=== PATIENT | female | born 1975 | race Caucasian/White ===

== ENCOUNTER 2018-08-08 13:24 | Outpatient (CLI) | payer MEDICAID, SELFPAY ==
--- NOTE | 2018-08-08 12:06 | DI.RAD_ITS ---
SYMPTOM/DIAGNOSIS: RT HIP PAIN, M25.551 RIGHT HIP: 08/08 Three views were obtained. No bony or soft tissue abnormality is seen. No evidence of fracture.
== END 2018-08-08 13:44 ==
PROVIDERS: PCP Nurse Practitioner Family; Visit Provider Nurse Practitioner Family
DX: M25.551 Pain in right hip (principal)
CPT/HCPCS: 73502

== ENCOUNTER 2018-09-05 11:40 | Emergency (ER) | payer MEDICAID, SELFPAY ==
[2018-09-05 12:15] VITALS: BP 132/88; PULSE 78; RESP 18; TEMP 36.7; O2SAT 99
--- NOTE | 2018-09-05 12:50 | W.ED.GENAD ---
Discharge Plan Disposition Patient Disposition: HOME Condition: Fair Discharge Details Chief Complaint: Orthopedic Clinical Impression: Muscle spasm Primary Care Provider: Phyllis Morataya ED Provider: Martha Zapata Home Meds and New Rx's Prescriptions: New cyclobenzaprine 10 mg tablet 10 mg PO TID PRN (Reason: muscle spasm) Qty: 10 RF: 0 ibuprofen 600 mg tablet 600 mg PO QID PRN (Reason: pain) Qty: 20 RF: 0 Continue meclizine [Antivert] 25 MG tablet 25 mg PO Q8H PRN PRN (Reason: Dizziness) Qty: 20 RF: 0 albuterol sulfate [ProAir HFA] 8.5 GM HFA aerosol inhaler 2 puff Inhalation .Q4-6H PRN RF: 0 naproxen 500 MG tablet 1 tab PO BID RF: 0 prochlorperazine maleate 10 MG tablet 10 mg PO Q4H PRN PRN (Reason: Headache) Qty: 10 RF: 0 bupropion HCl [Wellbutrin] 100 MG tablet 150 mg PO DAILY RF: 0 Discharge Instructions Instructions: Muscle Spasm (ED) Additional Instructions: Encourage hydration. Gentle stretching as discussed. Heat or ice to affected area. You may try topical patches such as Salonpas or Lidoderm patches to help with discomfort. Flexion was prescribed to help with muscle spasm. Tylenol and/or ibuprofen as needed for discomfort. May take 1000 mg of Tylenol every 6 hours, max of 4000 mg daily. You may also use 600 mg of ibuprofen every 6 hours. Next dosing of ibuprofen and due at 8 PM. Please follow-up with primary care at the end of the week for reevaluation. If you develop increased pain, fever/chills, shortness of breath, difficulty breathing or other new/worsening symptoms please seek care urgently once again. Referrals: Phyllis Morataya [Primary Care Provider] - Discharge Data Discharge Date/Time-TO BE ENTERED AT DEPARTURE: 09/05/18 14:20 Medical Decision Making Patient is a 43-year-old [id number] female presenting today with chief complaint of left anterior shoulder pain. She reports approximately 3 days ago she awoke with discomfort in left shoulder. States she did initially note some twinges of discomfort in this area the night before while at work. 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 She denies any altered sensation. Denies any discomfort with movement of the hand, wrist or elbow. Denies any known trauma. Indicates the area of the pectoralis is area of maximal discomfort. On exam, patient has a notable area of swelling approximately 10 cm in circumference. No ecchymosis, erythema or rashes. Patient is full range of motion with external and internal rotation. Forward elevation is quite limited to approximately 90 degrees secondary to pain. Again, the area of swelling over the left pectoral muscle is area of discomfort with forward elevation. This patient did not fall or have any trauma, I do not feel that imaging is necessary. Lungs are clear in all laguna. No cough, fever/chills, no difficulty breathing. Patient will be given Flexeril, Toradol, Tylenol and Lidoderm patch and will reassess the patient's discomfort. Patient is status post hysterectomy Patient received reiki while in the department which she reports helped some with her discomfort and help to calm her After patient received IM Toradol, Flexeril, Tylenol and Lidoderm patch, she reports that she is feeling much improved. Pain is still there but is tolerable. She is able to move her arm with much less discomfort. When I called her back into her room again she is swinging her arm and is holding herself on the left arm which is different than when I had seen her initially. She is able to demonstrate bringing her arm across her body which is what initially caused her maximal discomfort. Feels she tolerated the medication well. Encourage hydration. We discussed new/worsening symptoms when to seek care urgently once again. Advised on topical and oral regimens that may help with discomfort. She will be prescribed Flexeril to help with her palpable muscle spasm. Advise follow-up with primary care at the end of the week. We discussed activities that she should avoid that may exacerbate her discomfort. All of her questions and concerns were addressed she is in agreement this plan HPI General Mode of arrival: ambulatory. Date/Time Provider Initiated Documentation: 09/05/18 12:17. Limitations to Documentation: no limitations. History of Present Illness 43 year old F presents to the emergency department with the chief complaint of left shoulder pain, described as severe, with intensity rated at 10. Quality is described as aching, and is localized to the left and upper extremity. Patient reports no radiation; denies radiation to back, neck and extremity. Patient started experiencing this day(s) (3) and it has been constant. No relieving factors improve symptom(s), No exacerbating factors reported . Patient notes no other symptoms.; denies chest pain, cough, diaphoresis, fever/chills, headaches, malaise, nausea/vomiting, rash, shortness of breath and syncope. Patient did receive the following treatments prior to arrival, none Related Data Home Medications Medication Instructions Recorded Confirmed meclizine [Antivert] 25 mg PO Q8H PRN PRN #20 tab 08/15/13 09/05/18 albuterol sulfate [ProAir HFA] 2 puff INHALATION .Q4-6H PRN 12/20/13 09/05/18 bupropion HCl [Wellbutrin] 150 mg PO DAILY 03/22/17 09/05/18 naproxen 1 tab PO BID 08/01/17 09/05/18 prochlorperazine maleate 10 mg PO Q4H PRN PRN #10 tab 08/01/17 09/05/18 cyclobenzaprine 10 mg PO TID PRN #10 tab 09/05/18 ibuprofen 600 mg PO QID PRN #20 tab 09/05/18 Previous Rx's Medication Instructions Recorded meclizine [Antivert] 25 mg PO Q8H PRN PRN #20 tab 08/15/13 prochlorperazine maleate 10 mg PO Q4H PRN PRN #10 tab 08/01/17 cyclobenzaprine 10 mg PO TID PRN #10 tab 09/05/18 ibuprofen 600 mg PO QID PRN #20 tab 09/05/18 Allergies Allergy/AdvReac Type Severity Reaction Status Date / Time Penicillins Allergy chest Unverified 09/05/18 12:25 tightness, wheezes General Stated Complaint: Orthopedic RUSS: 4 Review of Systems Constitutional Reports as per HPI, Denies chills, Denies fever(s) and Denies headache(s) ENT Denies headache(s) Cardiovascular Denies chest pain, Denies chest pain with activity, Denies diaphoresis, Denies palpitations and Denies dyspnea Respiratory Denies cough, Denies pain on inspiration, Denies pain with cough and Denies dyspnea Gastrointestinal Denies abdominal pain, Denies change in stool character, Denies nausea and Denies vomiting Musculoskeletal Reports as per HPI, Denies numbness and Denies tingling Integumentary/Breasts Denies lesions, Denies rash and Denies skin pain Neurologic Denies headache(s), Denies numbness, Denies tingling and Denies paresthesias Endocrine Denies palpitations [facility] Social History Smoking/Tobacco Use Status: Never Exam Const General: cooperative, healthy appearing, uncomfortable (patient appears uncomfortable, splinting left arm with contralateral side), no acute distress, well developed and well groomed Nutritional Appearance: average body habitus and well nourished Orientation: alert and awake Neck Neck: normal visual inspection, full ROM, no lymphadenopathy, no meningeal signs, nontender and no torticollis Chest Chest: abnormal inspection of the chest (With the left lateral superior anterior chest patient has area of focal swelling. No rash or discoloration. This is the area of discomfort with the patient was associated with her left shoulder) Chest/axillae images: 1. Resp Effort & Inspection: normal respiratory effort, able to speak in complete sentences and no respiratory distress Auscultation: clear to auscultation bilaterally, no rales, no rhonchi and no wheezes Cardio Rate: regular rate Rhythm: regular rhythm Heart Sounds: S1 normal and S2 normal GI Inspection: normal to inspection Palpation: soft, no guarding and nontender Back/Spine/Pelvis Back: no CVA tenderness Cervical Spine: normal cervical lordosis and cervical ROM normal Thoracic/Lumbar Spine: thoracic and lumbar spine normal to inspection Skin General skin exam: no rashes or lesions noted Trauma: no lacerations or abrasions Neuro General: alert and awake Cognition: normal cognition Speech: speech normal Gait: normal gait Motor: muscle tone normal throughout Sensory Exam: no sensory deficits noted Extrem Right upper extremity: normal capillary refill, no joint enlargement and shoulder/upper arm Details: tenderness Location: over the biceps tendon; not of the clavicle, not of the A-C joint, not of the proximal humerus, not of the scapula and not over the subacromial bursa; no swelling, ROM limited, no ecchymosis, no crepitus and no unusual warmth; abnormal to inspection (Patient reports that she has anterior shoulder pain. Point of maximal tenderness seems to be more over the superior lateral chest wall, please see above. This area is swollen and feels tense like muscle spasm.), ROM limited (Patient is full external and internal rotation of the left shoulder. However, forward elevation is limited to 90 degrees. This causes increased pain over the area of chest wall disc), no cyanosis and no edema Psych Appearance: grossly normal and well kempt Mental Status: mental status grossly normal Speech and Movement: speech and movement normal Course Vital Signs Temperature 36.7 C 09/05/18 12:15 Pulse 78 09/05/18 12:15 Respiratory Rate 18 09/05/18 12:15 Blood Pressure 132/88 09/05/18 12:15 Pulse Oximetry 99 09/05/18 12:15 Temperature 36.7 C 09/05/18 12:15 Temperature Source Temporal Artery Scan 09/05/18 12:15 Pulse 78 09/05/18 12:15 Respiratory Rate 18 09/05/18 12:15 Blood Pressure 132/88 09/05/18 12:15 Pulse Oximetry 99 09/05/18 12:15 Oxygen Delivery Method Room Air 09/05/18 12:15 Oxygen Flow Rate 0 09/05/18 12:15 Pain Level 09/05/18 12:15 Comment 09/05/18 12:15
--- NOTE | 2018-09-05 12:53 | ED.GENADUL_ITS ---
Discharge Plan Disposition Patient Disposition: HOME Condition: Fair Discharge Details Chief Complaint: Orthopedic Clinical Impression: Muscle spasm Primary Care Provider: Phyllis Morataya ED Provider: Martha Zapata Home Meds and New Rx's Prescriptions: New cyclobenzaprine 10 mg tablet 10 mg PO TID PRN (Reason: muscle spasm) Qty: 10 RF: 0 ibuprofen 600 mg tablet 600 mg PO QID PRN (Reason: pain) Qty: 20 RF: 0 Continue meclizine [Antivert] 25 MG tablet 25 mg PO Q8H PRN PRN (Reason: Dizziness) Qty: 20 RF: 0 albuterol sulfate [ProAir HFA] 8.5 GM HFA aerosol inhaler 2 puff Inhalation .Q4-6H PRN RF: 0 naproxen 500 MG tablet 1 tab PO BID RF: 0 prochlorperazine maleate 10 MG tablet 10 mg PO Q4H PRN PRN (Reason: Headache) Qty: 10 RF: 0 bupropion HCl [Wellbutrin] 100 MG tablet 150 mg PO DAILY RF: 0 Discharge Instructions Instructions: Muscle Spasm (ED) Additional Instructions: Encourage hydration. Gentle stretching as discussed. Heat or ice to affected area. You may try topical patches such as Salonpas or Lidoderm patches to help with discomfort. Flexion was prescribed to help with muscle spasm. Tylenol and /or ibuprofen as needed for discomfort. May take 1000 mg of Tylenol every 6 hours, max of 4000 mg daily. You may also use 600 mg of ibuprofen every 6 hours. Next dosing of ibuprofen and due at 8 PM. Please follow-up with primary care at the end of the week for reevaluation. If you develop increased pain, fever/chills, shortness of breath, difficulty breathing or other new/ worsening symptoms please seek care urgently once again. Referrals: Phyllis Morataya [Primary Care Provider] - Discharge Data Discharge Date/Time-TO BE ENTERED AT DEPARTURE: 09/05/18 14:20 Medical Decision Making Patient is a 43-year-old [id number] female presenting today with chief complaint of left anterior shoulder pain. She reports approximately 3 days ago she awoke with discomfort in left shoulder. States she did initially note some twinges of discomfort in this area the night before while at work. 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 She denies any altered sensation. Denies any discomfort with movement of the hand, wrist or elbow. Denies any known trauma. Indicates the area of the pectoralis is area of maximal discomfort. On exam, patient has a notable area of swelling approximately 10 cm in circumference. No ecchymosis, erythema or rashes. Patient is full range of motion with external and internal rotation. Forward elevation is quite limited to approximately 90 degrees secondary to pain. Again, the area of swelling over the left pectoral muscle is area of discomfort with forward elevation. This patient did not fall or have any trauma, I do not feel that imaging is necessary. Lungs are clear in all laguna. No cough, fever/chills, no difficulty breathing. Patient will be given Flexeril, Toradol, Tylenol and Lidoderm patch and will reassess the patient's discomfort. Patient is status post hysterectomy Patient received reiki while in the department which she reports helped some with her discomfort and help to calm her After patient received IM Toradol, Flexeril, Tylenol and Lidoderm patch, she reports that she is feeling much improved. Pain is still there but is tolerable. She is able to move her arm with much less discomfort. When I called her back into her room again she is swinging her arm and is holding herself on the left arm which is different than when I had seen her initially. She is able to demonstrate bringing her arm across her body which is what initially caused her maximal discomfort. Feels she tolerated the medication well. Encourage hydration. We discussed new/worsening symptoms when to seek care urgently once again. Advised on topical and oral regimens that may help with discomfort. She will be prescribed Flexeril to help with her palpable muscle spasm. Advise follow-up with primary care at the end of the week. We discussed activities that she should avoid that may exacerbate her discomfort. All of her questions and concerns were addressed she is in agreement this plan HPI General Mode of arrival: ambulatory . Date/Time Provider Initiated Documentation: 09/05/18 12:17 . Limitations to Documentation: no limitations . History of Present Illness 43 year old F presents to the emergency department with the chief complaint of left shoulder pain, described as severe, with intensity rated at 10. Quality is described as aching, and is localized to the left and upper extremity. Patient reports no radiation; denies radiation to back, neck and extremity. Patient started experiencing this day(s) (3) and it has been constant. No relieving factors improve symptom(s), No exacerbating factors reported . Patient notes no other symptoms.; denies chest pain, cough, diaphoresis, fever/chills, headaches, malaise, nausea/vomiting, rash, shortness of breath and syncope. Patient did receive the following treatments prior to arrival, none Related Data Home Medications Medication Instructions Recorded Confirmed meclizine [Antivert] 25 mg PO Q8H PRN PRN #20 tab 08/15/13 09/05/18 albuterol sulfate [ProAir HFA] 2 puff INHALATION .Q4-6H PRN 12/20/13 09/05/18 bupropion HCl [Wellbutrin] 150 mg PO DAILY 03/22/17 09/05/18 naproxen 1 tab PO BID 08/01/17 09/05/18 prochlorperazine maleate 10 mg PO Q4H PRN PRN #10 tab 08/01/17 09/05/18 cyclobenzaprine 10 mg PO TID PRN #10 tab 09/05/18 ibuprofen 600 mg PO QID PRN #20 tab 09/05/18 Previous Rx's Medication Instructions Recorded meclizine [Antivert] 25 mg PO Q8H PRN PRN #20 tab 08/15/13 prochlorperazine maleate 10 mg PO Q4H PRN PRN #10 tab 08/01/17 cyclobenzaprine 10 mg PO TID PRN #10 tab 09/05/18 ibuprofen 600 mg PO QID PRN #20 tab 09/05/18 Allergies Allergy/AdvReac Type Severity Reaction Status Date / Time Penicillins Allergy chest Unverified 09/05/18 12:25 tightness, wheezes General Stated Complaint: Orthopedic RUSS: 4 Review of Systems Constitutional Reports as per HPI, Denies chills, Denies fever(s) and Denies headache(s) ENT Denies headache(s) Cardiovascular Denies chest pain, Denies chest pain with activity, Denies diaphoresis, Denies palpitations and Denies dyspnea Respiratory Denies cough, Denies pain on inspiration, Denies pain with cough and Denies dyspnea Gastrointestinal Denies abdominal pain, Denies change in stool character, Denies nausea and Denies vomiting Musculoskeletal Reports as per HPI, Denies numbness and Denies tingling Integumentary/Breasts Denies lesions, Denies rash and Denies skin pain Neurologic Denies headache(s), Denies numbness, Denies tingling and Denies paresthesias Endocrine Denies palpitations [facility] Social History Smoking/Tobacco Use Status: Never Exam Const General: cooperative, healthy appearing, uncomfortable (patient appears uncomfortable, splinting left arm with contralateral side), no acute distress, well developed and well groomed Nutritional Appearance: average body habitus and well nourished Orientation: alert and awake Neck Neck: normal visual inspection, full ROM, no lymphadenopathy, no meningeal signs , nontender and no torticollis Chest Chest: abnormal inspection of the chest (With the left lateral superior anterior chest patient has area of focal swelling. No rash or discoloration. This is the area of discomfort with the patient was associated with her left shoulder) Chest/axillae images: 2 1. Resp Effort & Inspection: normal respiratory effort, able to speak in complete sentences and no respiratory distress Auscultation: clear to auscultation bilaterally, no rales, no rhonchi and no wheezes Cardio Rate: regular rate Rhythm: regular rhythm Heart Sounds: S1 normal and S2 normal GI Inspection: normal to inspection Palpation: soft, no guarding and nontender Back/Spine/Pelvis Back: no CVA tenderness Cervical Spine: normal cervical lordosis and cervical ROM normal Thoracic/Lumbar Spine: thoracic and lumbar spine normal to inspection Skin General skin exam: no rashes or lesions noted Trauma: no lacerations or abrasions Neuro General: alert and awake Cognition: normal cognition Speech: speech normal Gait: normal gait Motor: muscle tone normal throughout Sensory Exam: no sensory deficits noted Extrem Right upper extremity: normal capillary refill, no joint enlargement and shoulder/upper arm Details: tenderness Location: over the biceps tendon; not of the clavicle, not of the A-C joint, not of the proximal humerus, not of the scapula and not over the subacromial bursa; no swelling, ROM limited, no ecchymosis, no crepitus and no unusual warmth; abnormal to inspection (Patient reports that she has anterior shoulder pain. Point of maximal tenderness seems to be more over the superior lateral chest wall, please see above. This area is swollen and feels tense like muscle spasm.), ROM limited (Patient is full external and internal rotation of the left shoulder. However, forward elevation is limited to 90 degrees. This causes increased pain over the area of chest wall disc), no cyanosis and no edema Psych Appearance: grossly normal and well kempt Mental Status: mental status grossly normal Speech and Movement: speech and movement normal Course Vital Signs Temperature 36.7 C 09/05/18 12:15 Pulse 78 09/05/18 12:15 Respiratory Rate 18 09/05/18 12:15 Blood Pressure 132/88 09/05/18 12:15 Pulse Oximetry 99 09/05/18 12:15 Temperature 36.7 C 09/05/18 12:15 Temperature Source Temporal Artery Scan 09/05/18 12:15 Pulse 78 09/05/18 12:15 Respiratory Rate 18 09/05/18 12:15 Blood Pressure 132/88 09/05/18 12:15 Pulse Oximetry 99 09/05/18 12:15 Oxygen Delivery Method Room Air 09/05/18 12:15 Oxygen Flow Rate 0 09/05/18 12:15 Pain Level 09/05/18 12:15 Comment 09/05/18 12:15
[2018-09-05] MEDS: Acetaminophen 500 MG TAB 1000 MG PO (13:00)
[2018-09-05] MEDS: Cyclobenzaprine 10 MG TAB PO (13:00)
[2018-09-05] MEDS: Ketorolac 30 MG/ML VIAL IM (13:05)
[2018-09-05] MEDS: Lidocaine 5% Patch 1 PATCH TP (13:11)
== END 2018-09-05 14:20 | disposition home or self-care (01) ==
PROVIDERS: Emergency Provider Physician Assistant; PCP Nurse Practitioner Family
DX: M62.838 Other muscle spasm (principal); X50.3XXA Overexertion from repetitive movements, initial encounter
CPT/HCPCS: 96372; 99284; 99283; J1885

== ENCOUNTER 2019-04-19 06:04 | Outpatient (CLI) | payer MEDICAID, SELFPAY ==
--- NOTE | 2019-04-19 08:00 | DI.RAD_ITS ---
SYMPTOM/DIAGNOSIS: RT KNEE PAIN, M25.561 RIGHT KNEE: Three views. No priors for comparison. No bone, joint or soft tissue abnormality is identified. IMPRESSION: Negative examination.
== END 2019-04-19 06:24 ==
PROVIDERS: PCP Nurse Practitioner Family; Visit Provider Nurse Practitioner Family
DX: M25.561 Pain in right knee (principal)
CPT/HCPCS: 73562

== ENCOUNTER 2019-06-02 08:36 | Outpatient (REF) | payer MEDICAID, SELFPAY ==
[2019-06-02 11:23] LABS: HCT 39.5 % (36.0-46.0); HGB 13.1 g/dL (12.0-15.5); Mean Corp. HGB Concentration 33.2 g/dL (32.0-36.0); Mean Corpuscular Hemoglobin 28.4 pg (27.0-33.0); Mean Corpuscular Volume 85.7 fL (80-95); Mean Platelet Volume 10.5 fL (8.0-11.0); Platelet Count 251 x1000/uL (130-400); RBC 4.61 m/cumm (4.00-5.20); RBC Distribution Width 13.2 % (11.7-14.6); White Blood Cell Count 7.66 k/cumm (4.4-10.8)
[2019-06-02 11:32] LABS: ALT 25 U/L (12-78); AST 12 U/L (15-37); Alkaline Phosphatase 73 U/L (46-116); Anion Gap 9.6 mmol/L (3-11); BUN 24 mg/dL (7-18); Bilirubin, Total 0.5 mg/dL (0.2-1.0); CO2 26.4 mmol/L (21.0-32.0); CREATININE 0.78 mg/dL (0.55-1.02); Calcium 8.9 mg/dL (8.5-10.1); Calculated LDL 201 mg/dL; Chloride 103 mmol/L (98-107); Cholesterol 278 mg/dL (50-200); Glucose 91 mg/dL (70-100); HDL Cholesterol 46 mg/dL (40-60); Potassium 4.4 mmol/L (3.5-5.1); Sodium 139 mmol/L (136-145); Total Protein 7.2 g/dL (6.4-8.2); Triglyceride 159 mg/dL (30-150)
== END 2019-06-02 08:56 ==
LOC: NCHCN 08:36
PROVIDERS: PCP Nurse Practitioner Family; Visit Provider Nurse Practitioner Family
DX: E78.5 Hyperlipidemia, unspecified (principal)
CPT/HCPCS: 80053; 80061; 83721; 85027

== ENCOUNTER 2020-06-04 12:21 | Outpatient (CLI) | payer MEDICAID, SELFPAY ==
--- NOTE | 2020-06-04 11:55 | DI.RAD_ITS ---
EXAM: XR FOOT RT COMPLETE CLINICAL HISTORY: TOE PAIN RT FOOT, M79.674. TECHNIQUE: 2D digital imaging was performed. COMPARISON: MR MRI - L LOWER EXT WO CONTRAST from 12/05/2014 FINDINGS: There is a fracture seen extending obliquely through the proximal phalanx of the 4th toe. There is m ild displacement. There is no extension to the articular surface. No additional fractures are ident ified. IMPRESSION: Fracture of the proximal phalanx of 4th toe. DATA REPOSITORY: RADIATION DOSE DELIVERED:
== END 2020-06-04 12:41 ==
PROVIDERS: PCP Nurse Practitioner Family; Visit Provider Nurse Practitioner Family
DX: S92.911A Unspecified fracture of right toe(s), initial encounter for closed fracture (principal)
CPT/HCPCS: 73630

== ENCOUNTER 2021-03-20 09:17 | Outpatient (REF) | payer MEDICAID, SELFPAY ==
[2021-03-20 15:50] LABS: HCT 40.1 % (36.0-46.0); HGB 13.1 g/dL (11.2-15.7); MCH 29.1 pg (27.0-33.0); MCHC 32.7 % (32.0-36.0); MCV 89.1 fL (80-95); MPV 10.6 fL (8.0-11.0); Platelet Count 310 10^3/uL (130-400); RDW 13.2 % (11.7-14.6); RDW-SD 43.5 fL; WBC 7.33 10^3/uL (4.4-10.8)
[2021-03-20 16:08] LABS: ALT 33 U/L (14-59); AST 20 U/L (15-37); Albumin 4.1 g/dL (3.4-5.0); Alkaline Phosphatase 72 U/L (46-116); Anion Gap 8.3 mmol/L (3-11); BUN 21 mg/dL (7-18); Bilirubin, Total 0.3 mg/dL (0.2-1.0); CO2 27.7 mmol/L (21.0-32.0); CREATININE 0.9 mg/dL (0.55-1.02); Calcium 9.4 mg/dL (8.5-10.1); Chloride 103 mmol/L (98-107); Cholesterol 355 mg/dL (<200); Glucose 117 mg/dL (74-106); HDL Cholesterol 41 mg/dL (40-60); Potassium 4.3 mmol/L (3.5-5.1); Sodium 139 mmol/L (136-145); Total Protein 7.6 g/dL (6.4-8.2); Triglyceride 696 mg/dL (<150)
[2021-03-20 18:43] LABS: LDL CHOLESTEROL 172 mg/dL (<100)
[2021-03-21 10:40] LABS: Hepatitis C Ab w Rflx HCV PCR Negative (Negative)
[2021-03-21 11:18] LABS: HIV-1/2 Ag & Ab Screen Negative (Negative)
== END 2021-03-20 09:18 | disposition home or self-care (01) ==
LOC: NCHCN 09:17
PROVIDERS: PCP Nurse Practitioner Family; Visit Provider Nurse Practitioner Family
DX: E78.5 Hyperlipidemia, unspecified (principal); R23.8 Other skin changes; Z11.59 Encounter for screening for other viral diseases; Z11.4 Encounter for screening for human immunodeficiency virus [HIV]; Z51.81 Encounter for therapeutic drug level monitoring
CPT/HCPCS: 80053; 80061; 83721; 85027; 86803; 87389

== ENCOUNTER 2021-05-01 02:39 | Outpatient (CLI) | payer MEDICAID, SELFPAY ==
--- NOTE | 2021-05-01 | DI.MAMMO_ITS ---
Exam(s) MAMMO SCREENING EXAM: MAMMO SCREENING CLINICAL HISTORY: SCREENING, Z12.39. TECHNIQUE: Bilateral full field digital CC and MLO mammographic images were obtained with 3D tomosyn thesis and utilizing computer aided detection (CAD). COMPARISON: None. This is a baseline mammogram. FINDINGS: There are no CAD designations There are no new spiculated masses nor malignant appearing microcalcification groups. There is no significant architectural distortion nor skin thickening-retraction. IMPRESSION: No radiographic evidence of malignancy. BI-RADS Category 1 - Negative Breast Density - Category B - Scattered areas of fibroglandular density Breast density Category C or D implies that the patient has dense breast tissue. Dense breast tissue can make it harder to find cancer on a mammogram. Dense breast tissue is also associated with an incr eased risk of breast cancer. This information about the result of the mammogram report was provided to the patient to raise their awareness. Use this report when you speak with the patient about their risks for breast cancer, which includes their family history. At that time, you may recommend additional screening tests (Ultrasoun d or MRI) as these tests may add significant information. A negative radiographic report should not delay biopsy if a dominant or clinically suspicious mass is present. Up to ten percent of cancers are not identified on mammography. A negative report may reinforce clinical impression. Adenosis and dense breasts may obscure an underlying neoplasm. False positive reports average 6 to 10%. Patient will receive a letter notifying them of these results.
== END 2021-05-01 02:59 ==
PROVIDERS: PCP Nurse Practitioner Family; Visit Provider Nurse Practitioner Family
DX: Z12.31 Encounter for screening mammogram for malignant neoplasm of breast (principal); R92.8 Other abnormal and inconclusive findings on diagnostic imaging of breast
CPT/HCPCS: 77063; 77067

== ENCOUNTER 2022-08-05 12:58 | Outpatient (REF) | payer MEDICAID, SELFPAY ==
[2022-08-05 17:38] LABS: Cholesterol 333 mg/dL (<200); HDL Cholesterol 41 mg/dL (40-60); Triglyceride 775 mg/dL (<150)
[2022-08-05 17:55] LABS: LDL CHOLESTEROL 99 mg/dL (<100)
== END 2022-08-05 12:59 | disposition home or self-care (01) ==
LOC: NCHCN 12:58
PROVIDERS: Visit Provider Nurse Practitioner Family
DX: E78.5 Hyperlipidemia, unspecified (principal)
CPT/HCPCS: 80061; 83721

== ENCOUNTER 2023-02-25 13:17 | Outpatient (REF) | payer MEDICAID, SELFPAY ==
[2023-02-25 15:14] LABS: Abs Immature Grans 0.03 10^3/uL (0.0-0.06); Absolute Basophil Count 0.06 10^3/uL (0.0-0.2); Absolute Eosinophil Count 0.23 10^3/uL (0.0-0.7); Absolute Lymphocyte Count 2.24 10^3/uL (1.2-3.4); Absolute Monocyte Count 0.46 10^3/uL (0.1-0.8); Absolute Neutrophil Count 3.96 10^3/uL (1.2-6.7); Basophils % 0.9; Eosinophils % 3.3; HCT 41.1 % (36.0-46.0); HGB 13.7 g/dL (11.2-15.7); Immature Grans % 0.4; Lymphocytes % 32.1; MCH 28.5 pg (27.0-33.0); MCHC 33.3 % (32.0-36.0); MCV 85 fL (80-95); Monocytes % 6.6; Neutrophils % 56.7; Platelet Count 272 10^3/uL (130-400); RBC 4.81 10^6/uL (3.93-5.22); RDW 12.7 % (11.7-14.6); RDW-SD 39.8 fL; WBC 6.98 10^3/uL (4.4-10.8)
[2023-02-25 16:01] LABS: Hemoglobin A1C 5.3 % (<5.7)
[2023-02-25 16:34] LABS: ALT 37 U/L (14-59); AST 17 U/L (15-37); Albumin 4.2 g/dL (3.4-5.0); Alkaline Phosphatase 68 U/L (46-116); BUN 16 mg/dL (7-18); Bilirubin, Total 0.4 mg/dL (0.2-1.0); CREATININE 0.8 mg/dL (0.55-1.02); Chloride 102 mmol/L (98-107); Cholesterol 360 mg/dL (<200); Glucose 107 mg/dL (74-106); HDL Cholesterol 46 mg/dL (40-60); Potassium 4.5 mmol/L (3.5-5.1); Sodium 139 mmol/L (136-145); TSH (W/Ref FT4) 1.22 uIU/mL (0.36-3.74); Total Protein 7.6 g/dL (6.4-8.2); Triglyceride 579 mg/dL (<150)
[2023-02-25 17:00] LABS: LDL CHOLESTEROL 130 mg/dL (<100)
== END 2023-02-25 13:18 | disposition home or self-care (01) ==
LOC: NCHCN 13:17
PROVIDERS: Visit Provider Nurse Practitioner Family
DX: R63.5 Abnormal weight gain (principal); E78.5 Hyperlipidemia, unspecified; R73.09 Other abnormal glucose
CPT/HCPCS: 80053; 80061; 83721; 83036; 84443; 85025

== ENCOUNTER 2024-01-28 11:16 | Outpatient (REF) | payer MEDICAID, SELFPAY ==
[2024-01-28 15:44] LABS: ALT 28 U/L (14-59); AST 12 U/L (15-37); Albumin 4.2 g/dL (3.4-5.0); Alkaline Phosphatase 68 U/L (46-116); Anion Gap 7.5 mmol/L (3-11); BUN 16 mg/dL (7-18); Bilirubin, Total 0.6 mg/dL (0.2-1.0); CO2 27.5 mmol/L (21.0-32.0); CREATININE 0.8 mg/dL (0.55-1.02); Calcium 9.2 mg/dL (8.5-10.1); Calculated LDL 111 mg/dL (<100); Chloride 105 mmol/L (98-107); Cholesterol 225 mg/dL (<200); Estimated GFR 90.83 (mL/min/1.73m2); Glucose 106 mg/dL (74-106); HDL Cholesterol 50 mg/dL (40-60); Potassium 4.7 mmol/L (3.5-5.1); Sodium 140 mmol/L (136-145); Total Protein 7.6 g/dL (6.4-8.2); Triglyceride 321 mg/dL (<150)
== END 2024-01-28 11:17 | disposition home or self-care (01) ==
LOC: NCHCN 11:16
PROVIDERS: Visit Provider Nurse Practitioner Family
DX: E78.5 Hyperlipidemia, unspecified (principal)
CPT/HCPCS: 80053; 80061

== ENCOUNTER → 2024-01-31 02:10 | Outpatient (CLI) | payer MEDICAID, SELFPAY ==
--- NOTE | 2024-01-31 | DI.RAD_ITS ---
Exam(s) XR FOOT RT COMPLETE EXAM: XR FOOT RT COMPLETE CLINICAL HISTORY: RT FOOT AND GREAT TOE PAIN,M79.671,BUNION VS ARTHRITIS VS OLD FX. TECHNIQUE: 2D digital imaging was performed of the right foot. Three images were obtained. AP, obl ique and lateral views were obtained. COMPARISON: CR XR FOOT RT COMPLETE from 06/04/2020 FINDINGS: BONES: No acute fracture is present. No bony destructive lesion is seen. There is a tiny plantar calc aneal spur. JOINTS: No dislocation present. The joint spaces are well maintained and unremarkable. No evidence o f a bunion. SOFT TISSUE: Normal. IMPRESSION: Unremarkable radiographs of the right foot. DATA REPOSITORY: RADIATION DOSE DELIVERED:
== END ==
PROVIDERS: PCP Nurse Practitioner Family; Visit Provider Nurse Practitioner Family
DX: M79.671 Pain in right foot (principal)
CPT/HCPCS: 73630

== ENCOUNTER 2025-03-06 12:22 | Outpatient (REF) | payer MEDICAID, SELFPAY ==
[2025-03-06 19:45] LABS: Abs Immature Grans 0.02 10^3/uL (0.0-0.06); Absolute Basophil Count 0.06 10^3/uL (0.0-0.2); Absolute Eosinophil Count 0.21 10^3/uL (0.0-0.7); Absolute Lymphocyte Count 2.19 10^3/uL (1.2-3.4); Absolute Neutrophil Count 3.99 10^3/uL (1.2-6.7); Basophils % 0.9 %; Eosinophils % 3.1 %; HCT 40.3 % (36.0-46.0); HGB 13.3 g/dL (11.2-15.7); Immature Grans % 0.3 %; Lymphocytes % 31.9 %; MCH 28.7 pg (27.0-33.0); MCV 87 fL (80-95); MPV 10.5 fL (8.0-11.0); Monocytes % 5.8 %; Platelet Count 250 10^3/uL (130-400); RBC 4.64 10^6/uL (3.93-5.22); RDW 12.8 % (11.7-14.6); RDW-SD 40.5 fL; WBC 6.87 10^3/uL (4.4-10.8)
[2025-03-06 20:08] LABS: Hemoglobin A1C 5.3 % (<5.7)
[2025-03-06 20:25] LABS: ALT 32 U/L (14-59); AST 16 U/L (15-37); Albumin 4.3 g/dL (3.4-5.0); Alkaline Phosphatase 65 U/L (46-116); Anion Gap 9.2 mmol/L (3-11); BUN 19 mg/dL (7-18); Bilirubin, Total 0.8 mg/dL (0.2-1.0); CO2 27.8 mmol/L (21.0-32.0); CREATININE 0.7 mg/dL (0.55-1.02); Calcium 9.4 mg/dL (8.5-10.1); Calculated LDL 110 mg/dL (<100); Chloride 105 mmol/L (98-107); Cholesterol 212 mg/dL (<200); Estimated GFR 105.95 (mL/min/1.73m2); Glucose 104 mg/dL (74-106); HDL Cholesterol 64 mg/dL (>or=50); Potassium 4.3 mmol/L (3.5-5.1); Sodium 142 mmol/L (136-145); TSH (W/Ref FT4) 1.19 uIU/mL (0.36-3.74); Total Protein 7.6 g/dL (6.4-8.2); Triglyceride 192 mg/dL (<150)
== END 2025-03-06 12:23 | disposition home or self-care (01) ==
LOC: NCHCN 12:22
PROVIDERS: PCP Nurse Practitioner Family; Visit Provider Nurse Practitioner Family
DX: E78.5 Hyperlipidemia, unspecified (principal); Z13.29 Encounter for screening for other suspected endocrine disorder; Z13.1 Encounter for screening for diabetes mellitus
CPT/HCPCS: 80053; 80061; 83036; 84443; 85025

== ENCOUNTER 2025-09-04 12:00 | Outpatient (REF) | payer MEDICAID, SELFPAY | END 2025-09-04 12:01 | disposition home or self-care (01) | LOC: NCHCN 12:00 | PROVIDERS: PCP Student in an Organized Health Care Education/Training Program; Visit Provider Student in an Organized Health Care Education/Training Program | DX: F90.0 Attention-deficit hyperactivity disorder, predominantly inattentive type (principal) | CPT/HCPCS: 80360 ==